=== PATIENT | male | born 1970 | race Caucasian/White ===

== ENCOUNTER 2017-01-27 18:42 | Observation (INO) | payer OTHER ==
[~2017-01-27] VITALS: Ht 162.6 cm; Wt 101.6 kg
[2017-01-27 20:18] LABS: RED BLOOD COUNT 5.38 M/UL (4.20-5.50); WHITE BLOOD COUNT 9.6 K/UL (4.5-11.0)
[2017-01-27 20:43] LABS: BUN/CREATININE RATIO 15 (0-10)
[2017-01-28 07:30] LABS: BUN/CREATININE RATIO 17 (0-10)
[2017-01-28] MEDS ORDERED: EFFIENT10 MG PO (09:43)
[2017-01-28] MEDS ORDERED: LISINOPRIL10 MG PO (09:43)
[2017-01-28] MEDS ORDERED: LOPRESSOR50 MG PO (09:43)
[2017-01-28] MEDS ORDERED: ASPIRIN EC81 MG PO (09:44)
[2017-01-28] MEDS ORDERED: ZOCOR 40 MG TAB40 MG PO (09:44)
[2017-01-28] MEDS ORDERED: NEURONTIN600 MG PO (09:45)
[2017-01-28] MEDS ORDERED: NITROGLYCERIN0.4 MG SL (09:50)
[2017-01-29 04:23] LABS: HEMOGLOBIN 15.3 gm/dl (14.0-17.5); RED BLOOD COUNT 5.26 M/UL (4.20-5.50)
[2017-01-29 04:49] LABS: BUN/CREATININE RATIO 15 (0-10)
== END 2017-01-29 13:35 | disposition home or self-care (01) ==
LOC: ER1 18:42 → ZEROF 21:56 → PROG CARE 21:56
PROVIDERS: Emergency Medicine; Internal Medicine; ADMIT Family Medicine
PROC: 027034Z Dilation of Coronary Artery, One Artery with Drug-eluting Intraluminal Device, Percutaneous Approach (ICD-10-PCS; principal; 2017-01-28)
PROC: 4A023N7 Measurement of Cardiac Sampling and Pressure, Left Heart, Percutaneous Approach (ICD-10-PCS; 2017-01-28)
PROC: B2111ZZ Fluoroscopy of Multiple Coronary Arteries using Low Osmolar Contrast (ICD-10-PCS; 2017-01-28)
DX: I25.110 Atherosclerotic heart disease of native coronary artery with unstable angina pectoris (principal); T82.855A Stenosis of coronary artery stent, initial encounter; E87.2 Acidosis; Y71.3 Surgical instruments, materials and cardiovascular devices (including sutures) associated with adverse incidents; I10 Essential (primary) hypertension; E78.5 Hyperlipidemia, unspecified; E66.9 Obesity, unspecified; Z68.36 Body mass index [BMI] 36.0-36.9, adult; R73.9 Hyperglycemia, unspecified; T38.0X5A Adverse effect of glucocorticoids and synthetic analogues, initial encounter; F17.210 Nicotine dependence, cigarettes, uncomplicated; I25.2 Old myocardial infarction; Z72.3 Lack of physical exercise; Z79.82 Long term (current) use of aspirin; Z79.899 Other long term (current) drug therapy; Z88.8 Allergy status to other drugs, medicaments and biological substances; Z82.49 Family history of ischemic heart disease and other diseases of the circulatory system; Z80.1 Family history of malignant neoplasm of trachea, bronchus and lung; Z80.8 Family history of malignant neoplasm of other organs or systems
CPT/HCPCS: ECHO; 36415; 71010; 80048; 80053; 80061; 82550; 82553; 83874; 83880; 84484; 85025; 85027; 85347; 85610; 85730; 93005; 93017; 93306; 96372; 96374; 96375; 99285; C1725; C1769; C1874; C1887; C9600; G0378; J0583; J1644; J1650; J2250; J2270; J2405; J3010; J7030; Q0163; Q9963

== ENCOUNTER → 2017-03-01 | Outpatient (CLI) | payer OTHER ==
[~2017-03-01] MED LIST: ASPIRIN EC81 MG PO; EFFIENT10 MG PO; LISINOPRIL10 MG PO; LOPRESSOR50 MG PO; NEURONTIN600 MG PO; NITROGLYCERIN0.4 MG SL; ZOCOR 40 MG TAB40 MG PO
== END ==
LOC: HEART 5 08:28
DX: R06.02 Shortness of breath (principal); F17.210 Nicotine dependence, cigarettes, uncomplicated
CPT/HCPCS: 94010

== ENCOUNTER 2020-12-04 13:49 | Observation (INO) | payer OTHER ==
[~2020-12-04] VITALS: Ht 180.3 cm; Wt 108.9 kg
[~2020-12-04 13:49] MED LIST changes: +24HR ALLERGY REL5 MG PO; +HYDROCHLOROTHIA25 MG PO; +IBUPROFEN800 MG PO; +LIPITOR TAB 2020 MG PO; +MAPAP325 MG PO; +NEURONTIN 400400 MG PO; +OMEPRAZOLE40 MG PO; +PAMELOR25 MG PO
[2020-12-04 14:35] LABS: HEMOGLOBIN 15.7 gm/dl (14.0-17.5); RED BLOOD COUNT 5.51 M/UL (4.20-5.50); WHITE BLOOD COUNT 7.6 K/UL (4.5-11.0)
[2020-12-04 14:57] LABS: BUN/CREATININE RATIO 12 (0-10)
[2020-12-04] MEDS ORDERED: ZYRTEC10 M3 PO (17:25)
[2020-12-04] MEDS ORDERED: CLARITIN10 M2 PO (17:26)
[2020-12-04] MEDS ORDERED: HYDROCHLOROTH12.5 M1 PO (17:27)
[2020-12-04] MEDS ORDERED: PREVACID30 MG PO (17:28)
[2020-12-05 02:45] LABS: RED BLOOD COUNT 5.1 M/UL (4.20-5.50); WHITE BLOOD COUNT 7.2 K/UL (4.5-11.0)
[2020-12-05 02:46] LABS: BUN/CREATININE RATIO 15 (0-10)
--- NOTE | 2020-12-05 17:49 | NUR ---
PT RETURNED FROM PRACTICE REPRESENTATIVE, NO S/SX OF DISTRESS NOTED. SURGICIAL SITE INTACT WITH NO DRAINAGE, DRESSING CLEAN AND DRY.
== END 2020-12-05 21:45 | disposition home or self-care (01) ==
LOC: ER1 13:49 → CDU 15:43 → M/S 12-05 14:39
PROVIDERS: Emergency Medicine; Physician Assistant Medical; ADMIT Internal Medicine
PROC: 4A023N7 Measurement of Cardiac Sampling and Pressure, Left Heart, Percutaneous Approach (ICD-10-PCS; principal; 2020-12-05)
PROC: B2111ZZ Fluoroscopy of Multiple Coronary Arteries using Low Osmolar Contrast (ICD-10-PCS; 2020-12-05)
PROC: B2151ZZ Fluoroscopy of Left Heart using Low Osmolar Contrast (ICD-10-PCS; 2020-12-05)
DX: I25.110 Atherosclerotic heart disease of native coronary artery with unstable angina pectoris (principal); T82.855A Stenosis of coronary artery stent, initial encounter; I10 Essential (primary) hypertension; I25.2 Old myocardial infarction; E78.5 Hyperlipidemia, unspecified; K21.9 Gastro-esophageal reflux disease without esophagitis; E66.9 Obesity, unspecified; Z68.33 Body mass index [BMI] 33.0-33.9, adult; Z95.5 Presence of coronary angioplasty implant and graft; Z88.5 Allergy status to narcotic agent; Z91.012 Allergy to eggs; Z79.82 Long term (current) use of aspirin; Z79.899 Other long term (current) drug therapy; Z20.822 Contact with and (suspected) exposure to COVID-19; Z87.891 Personal history of nicotine dependence; Y83.2 Surgical operation with anastomosis, bypass or graft as the cause of abnormal reaction of the patient, or of later complication, without mention of misadventure at the time of the procedure
CPT/HCPCS: 71045; 80048; 80053; 82550; 82553; 83735; 83874; 84484; 85025; 85027; 93005; 99152; 99153; 99285; C1760; G0378; J1644; J2250; J3010; Q9963; Q9967; U0002